=== PATIENT | female | born 1990 | race Caucasian/White ===

== ENCOUNTER 2021-01-23 04:55 | Day surgery (SDC) | payer OTHER ==
[2021-01-22 16:11] VITALS: BMI 21.9
[2021-01-23] MEDS ORDERED: MIDAZOLAM HCL 2 MG/2 ML SINGLE DOSE VIAL ONE (14:08)
[2021-01-23] MEDS ORDERED: PROPOFOL 20 ML ONE (14:10)
[2021-01-23] MEDS ORDERED: LIDOCAINE 1%/EPI 1:100000 (20 ML MULTI DOSE VIAL) ONE (14:21)
[2021-01-23] MEDS ORDERED: LIDOCAINE 1%/EPI 1:100000 (50 ML MULTI DOSE VIAL) INF ONE (14:23)
[2021-01-23 17:33] VITALS: BP 119/79; PULSE 68; TEMP 97.9
== END 2021-01-23 17:10 | disposition home or self-care (01) ==
LOC: JASU-SURG 04:55
PROVIDERS: ATTEND Specialist
PROC: 0UBC7ZX Excision of Cervix, Via Natural or Artificial Opening, Diagnostic (ICD-10-PCS; principal; 2021-01-23 12:00)
DX: N87.1 Moderate cervical dysplasia (principal)
CPT/HCPCS: 81025; 86850; 86900; 86901; 88305-TC; 88307-TC